=== PATIENT | female | born 1980 | race Two or more races ===

== ENCOUNTER 2016-06-28 11:58 | Emergency (ER) | payer SELFPAY ==
--- NOTE | 2016-06-28 12:17 | ER Document Report ---
ED Medical Screen (RME) - General Chief Complaint: Flank Pain Stated Complaint: RIGHT SIDE PAIN Time seen by provider: 12:15 Mode of Arrival: Ambulatory Information source: Patient Notes: 35-year-old female presents to ED for right flank pain for 3 days with nausea and vomiting yesterday 6 times. States she has not vomited any today. States she's been scared to take medicine due to vomiting after taken Tylenol. Denies pain with urination or any blood in her urine. Denies history of kidney stones. I have greeted and performed a rapid initial assessment of this patient. A comprehensive ED assessment and evaluation of the patient, analysis of test results and completion of medical decision making process will be conducted by an additional ED providers. - Related Data Allergies/Adverse Reactions: No Known Allergies Allergy (Unverified 10/19/11 10:13) Past Medical History Neurological Medical History: Reports: Hx Migraine Past Surgical History: Reports: Hx Section - x 2 - Immunizations Hx Diphtheria, Pertussis, Tetanus Vaccination: Yes - 2006 Physical Exam - Vital signs Vitals: Temp Pulse Resp BP Pulse Ox 97.9 F 71 16 125/76 98 06/28/16 12:07 06/28/16 12:07 06/28/16 12:07 06/28/16 12:07 06/28/16 12:07 Course - Vital Signs Vital signs: Temp Pulse Resp BP Pulse Ox 97.9 F 71 16 125/76 98 06/28/16 12:07 06/28/16 12:07 06/28/16 12:07 06/28/16 12:07 06/28/16 12:07
[2016-06-28 12:59] LABS: ABSOLUTE BASOPHILS # (AUTO) 0.1 10^3/uL (0.0-0.2); ABSOLUTE EOSINOPHILS # (AUTO) 0.3 10^3/uL (0.0-0.6); ABSOLUTE LYMPHOCYTES (AUTO) 2.3 10^3/uL (0.5-4.7); ABSOLUTE MONOCYTES (AUTO) 0.7 10^3/uL (0.1-1.4); ABSOLUTE NEUT (AUTO) 8.5 10^3/uL (1.7-8.2); BASOPHILS % (AUTO) 0.8 % (0-2); EOSINOPHILS % (AUTO) 2.6 % (0-6); HEMATOCRIT 42.2 % (36.0-47.0); HEMOGLOBIN 13.6 g/dL (12.0-15.5); HGB HCT DIFFERENCE -1.4; LYMPHOCYTES % (AUTO) 19.1 % (13-45); MEAN CORPUSCULAR HEMOGLOBIN 28.7 pg (27.0-33.4); MEAN CORPUSCULAR HGB CONC 32.2 g/dL (32.0-36.0); MEAN CORPUSCULAR VOLUME 89 fl (80-97); MONOCYTES % (AUTO) 5.6 % (3-13); RED BLOOD COUNT 4.75 10^6/uL (3.72-5.28); RED CELL DISTRIBUTION WIDTH 13.1 % (11.5-14.0); SEGMENTED NEUTROPHILS % (AUTO) 71.9 % (42-78); WHITE BLOOD COUNT 11.9 10^3/uL (4.0-10.5)
[2016-06-28 13:04] LABS: APPEARANCE,URINE CLOUDY; BILIRUBIN,URINE NEGATIVE (NEGATIVE); GLUCOSE, URINE NEGATIVE (NEGATIVE); KETONES,URINE NEGATIVE (NEGATIVE); LEUKOCYTE ESTERASE,URINE NEGATIVE (NEGATIVE); NITRITE,URINE NEGATIVE (NEGATIVE); PROTEIN,URINE 30 mg/dL (NEGATIVE); URINE SPECIFIC GRAVITY 1.026; UROBILINOGEN,URINE NEGATIVE mg/dL (<2.0)
[2016-06-28 13:18] LABS: ALANINE AMINOTRANSFERASE 26 U/L (9-52); ALBUMIN 4.6 g/dL (3.5-5.0); ALKALINE PHOSPHATASE 96 U/L (38-126); ANION GAP 13 (5-19); ASPARTATE AMINO TRANSFERASE 18 U/L (14-36); BILIRUBIN,TOTAL 0.6 mg/dL (0.2-1.3); BLOOD UREA NITROGEN 13 mg/dL (7-20); CALCIUM 10.1 mg/dL (8.4-10.2); CARBON DIOXIDE 27 mmol/L (22-30); CHLORIDE 101 mmol/L (98-107); CREATININE RESULT 0.76 mg/dL (0.52-1.25); GLUCOSE 84 mg/dL (75-110); SODIUM 141.1 mmol/L (137-145); TOTAL PROTEIN 7.7 g/dL (6.3-8.2)
[2016-06-28] MEDS ORDERED: HYDROCODONE/ACETAMINOPHEN 5-325 MG TABLET PO ONE (13:53)
[2016-06-28] MEDS ORDERED: ONDANSETRON 4 MG TAB.RAPDIS PO ONE (13:53)
--- NOTE | 2016-06-28 13:59 | ER Document Report ---
ED General - General Chief Complaint: Flank Pain Stated Complaint: RIGHT SIDE PAIN Mode of Arrival: Ambulatory Information source: Patient Notes: Patient presents to the emergency department with complaints of right-sided flank pain. Patient reports pain for the past 3-4 days. She reports yesterday she took some Tylenol but it made her sick and she vomited up. She reports she also vomited at least 6 times yesterday. She reports she was at [facility] and approximately 4 nights ago she pulled a pallet and she still felt some pain at that time, possibly pulled a muscle. The pain is worse. She denies pain with void, denies vaginal discharge. She denies fevers diarrhea. She reports denies past medical history kidney stones. TRAVEL OUTSIDE OF THE [place] IN LAST 30 DAYS: No - HPI Onset: Other - 3-4 days Quality of pain: Achy, Sharp Severity: Severe Pain Level: 4 Associated symptoms: Nausea, Vomiting Exacerbated by: Denies Relieved by: Denies Similar symptoms previously: No Recently seen / treated by doctor: No - Related Data Allergies/Adverse Reactions: No Known Allergies Allergy (Verified 06/28/16 12:16) Past Medical History - General Information source: Patient Last Menstrual Period: jun - Social History Smoking Status: Never Smoker Cigarette use (# per day): No Chew tobacco use (# tins/day): No Frequency of alcohol use: None Drug Abuse: None Occupation: [employer] Lives with: Family Family History: Hypertension - mom Patient has suicidal ideation: No Patient has homicidal ideation: No - Medical History Medical History: Negative Neurological Medical History: Reports: Hx Migraine Renal/ Medical History: Denies: Hx Peritoneal Dialysis Past Surgical History: Reports: Hx Section - x 2 - Immunizations Hx Diphtheria, Pertussis, Tetanus Vaccination: Yes - 2006 Review of Systems - Review of Systems Notes: Review HPI for review of systems., All other systems negative Physical Exam - Vital signs Vitals: Temp Pulse Resp BP Pulse Ox 97.9 F 71 16 125/76 98 06/28/16 12:07 06/28/16 12:07 06/28/16 12:07 06/28/16 12:07 06/28/16 12:07 - Notes Notes: PHYSICAL EXAMINATION: GENERAL: Well-appearing nontoxic looking HEAD: Atraumatic, normocephalic. EYES: Pupils equal round extraocular movements intact, sclera anicteric, conjunctiva are normal. ENT: nares patent, Moist mucous membranes. NECK: Normal range of motion, supple without lymphadenopathy LUNGS: CTAB and equal. No wheezes rales or rhonchi. HEART: Regular rate and rhythm without murmurs ABDOMEN: Soft, right side tenderness. No guarding, no rebound no c/o pain to RLQ BACK: RIGHT CVA TTP EXTREMITIES: Normal range of motion, no pitting edema. NEUROLOGICAL: Cranial nerves grossly intact. Normal sensory/motor exams. PSYCH: Normal mood, normal affect. SKIN: Warm, Dry, normal turgor, no rashes or lesions noted Course - Re-evaluation Re-evalutation: 06/28/16 13:56 I have consulted the attending provider, DR GODFREY, per [facility] guidelines. Patient complains of right flank pain. Denies history of kidney stones. Reports pain with extreme yesterday she took Tylenol but she vomited this up. She also reports she vomited at least 6 times yesterday. Denies family history of kidney stones. 06/28/16 15:04 dr kaye, urology contacted , patient fu with that office this week. Patient reports pain is gone. She was instructed on the kidney stone and importance of flushing or kidneys patient fluids and follow up with urology. She verbalized understanding. She was also instructed on all medications to include norco and Flomax possible lowering her blood pressure making her lightheaded she verbalized understanding. - Vital Signs Vital signs: Temp Pulse Resp BP Pulse Ox 97.3 F 60 16 114/77 96 06/28/16 15:49 06/28/16 15:49 06/28/16 14:17 06/28/16 15:49 06/28/16 15:49 - Laboratory Result Diagrams: 06/28/16 12:20 06/28/16 12:20 Laboratory results interpreted by me: 06/28/16 06/28/16 12:20 12:20 WBC 11.9 H Absolute Neutrophils 8.5 H Urine Protein 30 H Urine Blood LARGE H - Diagnostic Test Radiology reviewed: Image reviewed, Reports reviewed - 2 mm stone Right UVJ, Mild hydro Discharge - Discharge Clinical Impression: Right flank pain, Kidney stone on right side Condition: Stable Disposition: HOME, SELF-CARE Instructions: Kidney Stone ([facility]), Flomax ([facility]), Oral Narcotic Medication ([facility]) , Antinausea Medication ([facility]) Additional Instructions: *You have been evaluated for flank pain, kidney stone *Strain your urine *Take medication as prescribed- remember flomax *Push fluids *Follow up with a urologist within this week, call for an appointment *Monitor your blood pressure. Your blood pressure was elevated today. This may be because you were anxious, in pain or because you need medication. It is important to follow up with your primary care provider for full evaluation. *Return to ED for worsening condition, changes, needs, increased pain, fever Prescriptions: Hydrocodone/Acetaminophen [[place] 5-325 Tablet] 1 each PO QID #15 tablet Tamsulosin HCl [Flomax 0.4 mg Cap.sr] 0.4 mg PO DAILY #7 cap.sr.24h Forms: Elevated Blood Pressure, Return to Work Referrals: LICO KAYE MD [CHRISTA SANTOS] - Follow up in 3-5 days (call for an appointment)
[2016-06-28] MEDS ORDERED: TAMSULOSIN HCL 0.4 MG CAP.SR.24H PO ONE (14:56)
[2016-06-28] MEDS ORDERED: ONDANSETRON ODT 4 MG TAB (6 TAB/DSPK) PO PRN (15:05)
[2016-06-28 15:52] VITALS: BP 114/77
== END 2016-06-28 15:53 | disposition home or self-care (01) ==
LOC: ER 11:58
DX: N13.2 Hydronephrosis with renal and ureteral calculous obstruction (principal); R10.9 Unspecified abdominal pain; R11.2 Nausea with vomiting, unspecified
CPT/HCPCS: 99284; 36415; 84703; 85025; 80053; 81001; 76380; S0119